=== PATIENT | male | born 1960 | race Caucasian/White ===

== ENCOUNTER 2017-06-12 20:54 | Inpatient (IN) | payer OTHER ==
[~2017-06-12] VITALS: Ht 177.8 cm; Wt 80.8 kg
[2017-06-12 21:12] VITALS: BP 103/69; PULSE 106; RESP 18; TEMP 98.4; O2SAT 99
[2017-06-13] VITALS (10 sets, daily range): BP systolic 98–134; BP diastolic 67–92; PULSE 78–125; RESP 14–20; TEMP 96.2–98.4; O2SAT 94–99
[2017-06-13] MEDS ORDERED: SODIUM CHLORIDE 0.9% FLUSH 10 ML FLUSH IVF PRN
[2017-06-13] MEDS ORDERED: SODIUM CHLORID 0.9% 500 ML INJ 500 ML IV ONE ×2 (00:15→04:30)
--- NOTE | 2017-06-13 00:30 | RADRPT ---
EXAM DATE/TIME: 06/13/2017 00:07 [facility] COMPARISON: CHEST SINGLE AP, June 09, 2017, 21:21. INDICATIONS : Palpitations. MEDICAL HISTORY : None. SURGICAL HISTORY : None. ENCOUNTER: Sequela ACUITY: 4 - 6 days PAIN SCORE: 2/10 LOCATION: Bilateral chest FINDINGS: A single view of the chest demonstrates the lungs to be symmetrically aerated without evidence of mas s, infiltrate or effusion. The heart size is mildly prominent with no perihilar edema. Atherosclerot ic changes are present in the aorta. Osseous structures are intact. CONCLUSION: Mild cardiomegaly with no evidence of pulmonary edema. Koffi Joy MD on June 13, 2017 at 0:27 Board Certified Radiologist. This report was verified electronically.
[2017-06-13 00:39] LABS: AUTOMATED NEUTROPHIL # 6.9 TH/MM3 (1.8-7.7); BASOPHIL # 0.4 TH/MM3 (0-0.2); BASOPHIL % 4.1 % (0.0-2.0); CHLORIDE 104 MEQ/L (98-107); EOSINOPHIL # 0.1 TH/MM3 (0-0.4); EOSINOPHIL % 0.9 % (0.0-4.0); HEMATOCRIT 43.5 % (39.0-51.0); HEMOGLOBIN 14.7 GM/DL (13.0-17.0); LYMPH % 20.6 % (9.0-44.0); LYMPHOCYTE # 2.1 TH/MM3 (1.0-4.8); MEAN CELL VOLUME 90.2 FL (80.0-100.0); MEAN CORPUSCULAR HEMOGLOBIN 30.4 PG (27.0-34.0); MEAN CORPUSCULAR HGB CONC 33.7 % (32.0-36.0); MEAN PLATELET VOLUME 8.1 FL (7.0-11.0); MONO % 7.3 % (0.0-8.0); MONOCYTE # 0.8 TH/MM3 (0-0.9); NEUT % 67.1 % (16.0-70.0); PLATELET COUNT 212 TH/MM3 (150-450); RED BLOOD COUNT 4.82 MIL/MM3 (4.50-5.90); RED CELL DISTRIBUTION WIDTH 14.4 % (11.6-17.2); SODIUM (NA) 137 MEQ/L (136-145); WHITE BLOOD COUNT 10.3 TH/MM3 (4.0-11.0)
[2017-06-13 00:44] LABS: BICARBONATE 27.1 MEQ/L (21.0-32.0); BLOOD UREA NITROGEN 11 MG/DL (7-18); CALCIUM 8.5 MG/DL (8.5-10.1); GLUCOSE,RANDOM 88 MG/DL (74-106); INTERNATIONAL NORMALIZED RATIO 1.1 RATIO; MAGNESIUM 2.3 MG/DL (1.5-2.5); PROTHROMBIN TIME - PATIENT 11.3 SEC (9.8-11.6)
[2017-06-13 00:48] LABS: GLOMERULAR FILTRATION RATE 69 ML/MIN (>89)
[2017-06-13 00:52] LABS: TROPONIN I LESS THAN 0.02 NG/ML (0.02-0.05)
--- NOTE | 2017-06-13 01:15 | RADRPT ---
EXAM DATE/TIME: 06/13/2017 01:02 [facility] COMPARISON: CT BRAIN W/O CONTRAST, June 09, 2017, 21:11. INDICATIONS : Dizziness. Followup known abnormal low attenuation area in the right middle cerebral artery distribut ion. RADIATION DOSE: 63.86 CTDIvol (mGy) MEDICAL HISTORY : None SURGICAL HISTORY : None. ENCOUNTER: Initial ACUITY: 3 days PAIN SCALE: 0/10 LOCATION: cranial TECHNIQUE: Multiple contiguous axial images were obtained of the head. Using automated exposure control and adj ustment of the mA and/or kV according to patient size, radiation dose was kept as low as reasonably a chievable to obtain optimal diagnostic quality images. DICOM format image data is available electro nically for review and comparison. FINDINGS: There has been no significant change in the area of decreased attenuation involving the right pa rietal and temporal lobes. There is no mass effect or midline shift. There is no acute hemorrhage. Th e ventricular system remains within normal limits. The posterior fossa and brainstem are unremarkable . The bone windows remain within normal limits. CONCLUSION: Stable appearance of the low attenuation region in the right middle cerebral artery distribution. Thi s remains most characteristic of an area of subacute infarction. Koffi Joy MD on June 13, 2017 at 1:11 Board Certified Radiologist. This report was verified electronically.
[2017-06-13] MEDS ORDERED: BISACODYL 10 MG SUPP RECTAL PRN (02:45)
[2017-06-13] MEDS ORDERED: ACETAMINOPHEN/HYDROcodone 325 MG/5 MG TAB PO PRN (02:45)
[2017-06-13] MEDS ORDERED: ACETAMINOPHEN 325 MG TAB PO PRN (02:45)
[2017-06-13] MEDS ORDERED: MAGNESIUM HYDROXIDE SUSP 30 ML CUP PO PRN (02:45)
[2017-06-13] MEDS ORDERED: LACTULOSE SYRUP 20 GM/30 ML CUP PO PRN (02:45)
[2017-06-13] MEDS ORDERED: ONDANSETRON HCL 4 MG/2 ML VIAL IVP PRN (02:45)
[2017-06-13] MEDS ORDERED: SENNOSIDES 8.6 MG TAB PO PRN (02:45)
[2017-06-13] MEDS ORDERED: SODIUM CHLORIDE 0.9% FLUSH 10 ML FLUSH IV FLUSH PRN (02:45)
[2017-06-13] MEDS: SODIUM CHLOR 0.9% 1000 ML INJ 1,000 ML IV SCH ×3 (03:03→21:12)
--- NOTE | 2017-06-13 06:18 | PD ---
HPI Chief Complaint: Dizziness Time Seen by Provider: 00:00 Travel History International Travel<30 days: No Contact w/Intl Traveler<30days: No Traveled to known affect area: No History of Present Illness HPI 56-year-old male presents to the emergency department complaint of dizziness and headache. Patient states he was seen on Thursday for dizziness and headache diagnosed with atrial fibrillation and abnormal CAT scan. Patient signed out AMA because of business reasons and returns now because of recurrence of his dizziness and headache. Patient denies visual disturbance altered mentation difficulty with speech or swallowing has had no chest pain palpitations shortness of breath sweats nausea vomiting upper or lower extremity numbness tingling or weakness or ataxia gait. Patient headache is not sudden onset not thunderclap and not worst ever. PFSH Past Medical History Narrative Medical Atrial fibrillation CVA tobacco use; nursing notes reviewed Tetanus Vaccination: > 5 Years Influenza Vaccination: Yes Past Surgical History Other Surgery: Yes (BASAL CELL CA REMOVED RIGHT UPPER BACK, RIGHT EAR) Social History Alcohol Use: No Tobacco Use: Yes (03/24 ppd) Substance Use: No Allergies-Medications (Allergen,Severity, Reaction): Coded Allergies: No Known Allergies (Unverified Allergy, Unknown, 06/13/17) Reported Meds & Prescriptions Reported Meds & Active Scripts Active Review of Systems Except as stated in HPI: all other systems reviewed are Neg General / Constitutional: No: Fever, Chills Eyes: No: Diploplia, Blurred Vision, Photophobia HENT: Positive: Headaches, Lightheadedness, No: Vertigo Cardiovascular: No: Chest Pain or Discomfort, Palpitations, Diaphoresis Respiratory: No: Shortness of Breath Gastrointestinal: No: Nausea, Vomiting Genitourinary: No: Frequency, Dysuria Musculoskeletal: No: Myalgias, Arthralgias Skin: No Rash Neurologic: Positive: Dizziness, Headache, No: Weakness, Syncope, Focal Abnormalities, Coordination Problem, Ataxia, Change in Mentation, Slurred Speech , Paresthesia, Incontinence, Seizures, Sensory Disturbance Psychiatric: No: Anxiety Hematologic/Lymphatic: No: Lymph Node Enlargement Physical Exam Narrative GENERAL: Well-developed well-nourished male in no acute distress no respiratory distress SKIN: Warm and dry. HEAD: Atraumatic. Normocephalic. EYES: Pupils equal and round. No scleral icterus. No injection or drainage. ENT: No nasal bleeding or discharge. Mucous membranes pink and moist. NECK: Trachea midline. No JVD. CARDIOVASCULAR: Regular rate and rhythm. RESPIRATORY: No accessory muscle use. Clear to auscultation. Breath sounds equal bilaterally. GASTROINTESTINAL: Abdomen soft, non-tender, nondistended. Hepatic and splenic margins not palpable. MUSCULOSKELETAL: Extremities without clubbing, cyanosis, or edema. No obvious deformities. NEUROLOGICAL: Awake and alert. No obvious cranial nerve deficits. GCS 15 motor grossly within normal limits. Five out of 5 muscle strength in the arms and legs. No limb ataxia. No pronator drift. DTRs 2+ and equal bilateral upper extremities and lower extremities. Sensory exam intact. Normal speech. PSYCHIATRIC: Appropriate mood and affect; insight and judgment normal. Data Data Last Documented VS Vital Signs Date Time Temp Pulse Resp B/P (MAP) Pulse Ox O2 Delivery O2 Flow Rate FiO2 06/13/17 02:45 84 16 98/75 (83) 98 Room Air 06/12/17 21:12 98.4 Orders Orders Electrocardiogram (06/13/17 00:00) Basic Metabolic Panel (Bmp) (06/13/17 00:00) Complete Blood Count With Diff (06/13/17 00:00) Magnesium (Mg) (06/13/17 00:00) Troponin I (06/13/17 00:00) Act Partial Throm Time (Ptt) (06/13/17 00:00) Prothrombin Time / Inr (Pt) (06/13/17 00:00) Chest, Single Ap (06/13/17 00:00) Ct Brain W/O Iv Contrast(Rout) (06/13/17 00:00) Ecg Monitoring (06/13/17 00:00) Iv Access Insert/Monitor (06/13/17 00:00) Oximetry (06/13/17 00:00) Sodium Chloride 0.9% Flush (Ns Flush) (06/13/17 00:00) Sodium Chlorid 0.9% 500 Ml Inj (Ns 500 M (06/13/17 00:15) Aspirin Ec (Ecotrin Ec) (06/13/17 09:00) Lipid Profile (06/13/17 06:00) Pravastatin (Pravachol) (06/13/17 09:00) Echo 2d Comp With Doppler (06/13/17 ) Consult Neurology (06/13/17 ) Admit To Inpatient (06/13/17 ) Vital Signs (Adult) Q4H (06/13/17 02:42) Activity Oob With Assistance (06/13/17 02:42) Security Associate / Telemetry .CONTINUOUS (06/13/17 02:42) Intake + Output RAVINDRA.QSHIFT (06/13/17 02:42) Diet Heart Healthy (06/13/17 Breakfast) Sodium Chlor 0.9% 1000 Ml Inj (Ns 1000 M (06/13/17 02:42) Sodium Chloride 0.9% Flush (Ns Flush) (06/13/17 02:45) Sodium Chloride 0.9% Flush (Ns Flush) (06/13/17 09:00) Ondansetron Inj (Zofran Inj) (06/13/17 02:45) Comprehensive Metabolic Panel (06/14/17 06:00) Complete Blood Count With Diff (06/14/17 06:00) Pt Request For Service (06/13/17 02:42) Case Management Consult (06/13/17 02:42) Scd Bilateral/Knee High RAVINDRA.BID (06/13/17 02:42) Gus Bilateral/Knee High RAVINDRA.QSHIFT (06/13/17 02:45) Acetaminophen (Tylenol) (06/13/17 02:45) Acetamin-Hydrocod 325-5 Mg ([place] 5-325 (06/13/17 02:45) Acetamin-Hydrocod 325-10 Mg ([place] 10-32 (06/13/17 02:45) Docusate Sodium-Senna (Kelli-Colace) (06/13/17 09:00) Magnesium Hydroxide Liq (Milk Of Magnesi (06/13/17 02:45) Sennosides (Senokot) (06/13/17 02:45) Bisacodyl Supp (Dulcolax Supp) (06/13/17 02:45) Lactulose Liq (Lactulose Liq) (06/13/17 02:45) Inpatient Certification (06/13/17 ) Admit Order (Ed Use Only) (06/13/17 ) Security Associate / Telemetry RAVINDRA.Q8H (06/13/17 02:57) Activity Bed Rest (06/13/17 02:57) Notify Dr: Other (06/13/17 02:57) Labs Laboratory Tests Test 06/13/17 00:21 White Blood Count 10.3 TH/MM3 Red Blood Count 4.82 MIL/MM3 Hemoglobin 14.7 GM/DL Hematocrit 43.5 % Mean Corpuscular Volume 90.2 FL Mean Corpuscular Hemoglobin 30.4 PG Mean Corpuscular Hemoglobin Concent 33.7 % Red Cell Distribution Width 14.4 % Platelet Count 212 TH/MM3 Mean Platelet Volume 8.1 FL Neutrophils (%) (Auto) 67.1 % Lymphocytes (%) (Auto) 20.6 % Monocytes (%) (Auto) 7.3 % Eosinophils (%) (Auto) 0.9 % Basophils (%) (Auto) 4.1 % Neutrophils # (Auto) 6.9 TH/MM3 Lymphocytes # (Auto) 2.1 TH/MM3 Monocytes # (Auto) 0.8 TH/MM3 Eosinophils # (Auto) 0.1 TH/MM3 Basophils # (Auto) 0.4 TH/MM3 CBC Comment DIFF FINAL Differential Comment Prothrombin Time 11.3 SEC Prothromb Time International Ratio 1.1 RATIO Activated Partial Thromboplast Time 28.2 SEC Blood Urea Nitrogen 11 MG/DL Creatinine 1.10 MG/DL Random Glucose 88 MG/DL Calcium Level 8.5 MG/DL Magnesium Level 2.3 MG/DL Sodium Level 137 MEQ/L Potassium Level 4.1 MEQ/L Chloride Level 104 MEQ/L Carbon Dioxide Level 27.1 MEQ/L Anion Gap 6 MEQ/L Estimat Glomerular Filtration Rate 69 ML/MIN Troponin I LESS THAN 0.02 NG/ML MDM Medical Decision Making Medical Screen Exam Complete: Yes Emergency Medical Condition: Yes Medical Record Reviewed: Yes Interpretation(s) EKG shows atrial fibrillation with RVR with rate of [address] elevation or injury pattern change noted Vital Signs Date Time Temp Pulse Resp B/P (MAP) Pulse Ox O2 Delivery O2 Flow Rate FiO2 06/13/17 02:45 84 16 98/75 (83) 98 Room Air 06/13/17 01:28 79 16 101/77 (85) 96 Room Air 06/13/17 00:23 101 18 134/92 (106) 99 Room Air 06/12/17 23:07 Room Air 06/12/17 21:12 98.4 106 18 103/69 (80) 99 CBC & BMP Diagram 3/24/18 00:21 Calcium Level 8.5, Magnesium Level 2.[address] 06/13/17 0000 Signed Impressions: Service Date/Time: Tuesday, June 13, 2017 01:02 - CONCLUSION: Stable appearance of the low attenuation region in the right middle cerebral artery distribution. This remains most characteristic of an area of subacute infarction. Koffi Joy MD Chest X-Ray 06/13/17 0000 Signed Impressions: Service Date/Time: Tuesday, June 13, 2017 00:07 - CONCLUSION: Mild cardiomegaly with no evidence of pulmonary edema. Koffi Joy MD Differential Diagnosis Atrial fibrillation, CVA, dizziness, arrhythmia, electrolyte disturbance, ACS, GA Narrative Course 56-year-old male returns to the emergency department for evaluation after initial evaluation on Thursday for dizziness identified to have new onset atrial fibrillation at that time with controlled ventricular rate here presents with rapid heart rate for suspicion of atrial fibrillation with RVR EKG ordered; patient complains of recurrent headache patient had abnormal CT 06/09/17 which showed subacute infarct in the middle cerebral artery distribution. Repeat CT brain noncontrast ordered Patient placed on monitor technician continuous pulse oximetry IV access obtained specimens collected and sent for resulting Repeat CT unchanged is evidence of subacute infarct right middle cerebral artery distribution Patient heart rate has returned to normal ventricular rate therefore deferred Cardizem infusion Patient administered aspirin 162 mg Patient given bolus of normal saline; HR 87 -110 primarily 92-88 no cardiazem administered IV Patient aware of lab results imaging results and plan for admission and is agreeable; call placed to [facility] Physician Communication Physician Communication discussed with Dr Breen Diagnosis Primary Impression: CVA (cerebral vascular accident) Qualified Codes: I63.9 - Cerebral infarction, unspecified Additional Impression: Atrial fibrillation Qualified Codes: I48.0 - Paroxysmal atrial fibrillation Admitting Information Admitting Physician Requests: Admit Indigo Angel MD Jun 13, 2017 06:18
[2017-06-13] MEDS: SODIUM CHLORIDE 0.9% FLUSH 10 ML FLUSH IV FLUSH SCH ×2 (09:00→21:00)
[2017-06-13] MEDS: DOCUSATE SODIUM 50 MG/SENNA 8.6 MG TAB PO SCH ×2 (09:00→21:11)
[2017-06-13] MEDS: ASPIRIN EC 81 MG TABEC PO SCH (09:05)
[2017-06-13] MEDS: PRAVASTATIN SOD 40 MG TAB PO SCH (09:06)
[2017-06-13] MEDS: ACETAMINOPHEN/HYDROcodone 325 MG/10 MG TAB PO PRN (09:09)
--- NOTE | 2017-06-13 10:23 | HHI.HP ---
[facility] Service [facility] Primary Care Physician No Primary Care Physician Admission Diagnosis cva; new onset afib Diagnoses: Chief Complaint: dizziness, headache Travel History International Travel<30 Days: No Contact w/Intl Traveler <30 Da: No Traveled to Known Affected Are: No History of Present Illness 56-year-old male with h/o Afib presents to the emergency department complaint of dizziness and headache. Patient states he was seen on Thursday for dizziness and headache diagnosed with atrial fibrillation and abnormal CAT scan. Patient signed out AMA because of business reasons and returns now because of recurrence of his dizziness and headache. Patient denies visual disturbance altered mentation difficulty with speech or swallowing has had no chest pain palpitations shortness of breath sweats nausea vomiting upper or lower extremity numbness tingling or weakness or ataxia gait. Patient headache is not sudden onset not thunderclap and not worst ever. Review of Systems Except as stated in HPI: all other systems reviewed are Neg Past Family Social History Past Medical History Afib Past Surgical History Removal of basal cell carcinoma right upper back and right ear Reported Medications Reported Meds & Active Scripts Active Allergies: Coded Allergies: No Known Allergies (Unverified Allergy, Unknown, 06/13/17) Family History No h/o stoke in his family Mother with DM, hypothyroidism, ovarian CA Father Bladder CA, Lip Ca, Spine CA Social History Tobacco use 1 1/2 ppd. No illicit drug use or EtOH use. Physical Exam Vital Signs Vital Signs Date Time Temp Pulse Resp B/P (MAP) Pulse Ox O2 Delivery O2 Flow Rate FiO2 06/13/17 08:00 96.2 92 16 127/67 (87) 97 06/13/17 08:00 96.2 92 16 127/67 (87) 97 06/13/17 07:35 06/13/17 05:41 78 16 100/70 (80) 97 Room Air 06/13/17 02:45 84 16 98/75 (83) 98 Room Air 06/13/17 01:28 79 16 101/77 (85) 96 Room Air 06/13/17 00:23 101 18 134/92 (106) 99 Room Air 06/12/17 23:07 Room Air 06/12/17 21:12 98.4 106 18 103/69 (80) 99 Physical Exam GENERAL: This is a well-nourished, well-developed patient, in no apparent distress. SKIN: No rashes, ecchymoses or lesions. Cool and dry. HEAD: Atraumatic. Normocephalic. No temporal or scalp tenderness. EYES: Pupils equal round and reactive. Extraocular motions intact. No scleral icterus. No injection or drainage. ENT: Nose without bleeding, purulent drainage or septal hematoma. Throat without erythema, tonsillar hypertrophy or exudate. Uvula midline. Airway patent. NECK: Trachea midline. No JVD or lymphadenopathy. Supple, nontender, no meningeal signs. CARDIOVASCULAR: Irregular rate and rhythm without murmurs, gallops, or rubs. RESPIRATORY: Clear to auscultation. Breath sounds equal bilaterally. No wheezes , rales, or rhonchi. GASTROINTESTINAL: Abdomen soft, non-tender, nondistended. No hepato-splenomegaly , or palpable masses. No guarding. MUSCULOSKELETAL: Extremities without clubbing, cyanosis, or edema. No joint tenderness, effusion, or edema noted. No calf tenderness. Negative Homans sign bilaterally. NEUROLOGICAL: Awake and alert. Cranial nerves II through XII intact. Motor and sensory grossly within normal limits. Five out of 5 muscle strength in all muscle groups. Normal speech. Laboratory Laboratory Tests Test 06/13/17 00:21 06/13/17 05:38 White Blood Count 10.3 Red Blood Count 4.82 Hemoglobin 14.7 Hematocrit 43.5 Mean Corpuscular Volume 90.2 Mean Corpuscular Hemoglobin 30.4 Mean Corpuscular Hemoglobin Concent 33.7 Red Cell Distribution Width 14.4 Platelet Count 212 Mean Platelet Volume 8.1 Neutrophils (%) (Auto) 67.1 Lymphocytes (%) (Auto) 20.6 Monocytes (%) (Auto) 7.3 Eosinophils (%) (Auto) 0.9 Basophils (%) (Auto) 4.1 Neutrophils # (Auto) 6.9 Lymphocytes # (Auto) 2.1 Monocytes # (Auto) 0.8 Eosinophils # (Auto) 0.1 Basophils # (Auto) 0.4 CBC Comment DIFF FINAL Differential Comment Prothrombin Time 11.3 Prothromb Time International Ratio 1.1 Activated Partial Thromboplast Time 28.2 Blood Urea Nitrogen 11 Creatinine 1.10 Random Glucose 88 Calcium Level 8.5 Magnesium Level 2.3 Sodium Level 137 Potassium Level 4.1 Chloride Level 104 Carbon Dioxide Level 27.1 Anion Gap 6 Estimat Glomerular Filtration Rate 69 Troponin I LESS THAN 0.02 Result Diagram: 06/13/17 0021 06/13/17 0021 Imaging Last Impressions Head CT 06/13/17 0000 Signed Impressions: Service Date/Time: Tuesday, June 13, 2017 01:02 - CONCLUSION: Stable appearance of the low attenuation region in the right middle cerebral artery distribution. This remains most characteristic of an area of subacute infarction. Koffi Joy MD Chest X-Ray 06/13/17 0000 Signed Impressions: Service Date/Time: Tuesday, June 13, 2017 00:07 - CONCLUSION: Mild cardiomegaly with no evidence of pulmonary edema. Koffi Joy MD [place] VTE Risk Assessment Caprini VTE Risk Assessment: Mod/High Risk (score >= 2) Caprini Risk Assessment Model Point Value = 1 Point Value = 2 Point Value = 3 Point Value = 5 Age 41-60 Minor surgery BMI > 25 kg/m2 Swollen legs Varicose veins or History of unexplained or recurrent spontaneous Oral contraceptives or hormone replacement Sepsis (< 1 month) Serious lung disease, including pneumonia (< 1 month) Abnormal pulmonary function Acute myocardial infarction Congestive heart failure (< 1 month) History of inflammatory bowel disease Medical patient at bed rest Age 61-74 Arthroscopic surgery Major open surgery (> 45 min) Laparoscopic surgery (> 45 min) Malignancy Confined to bed (> 72 hours) Immobilizing plaster cast Central venous access Age >= 75 History of VTE Family history of VTE Factor V Leiden Prothrombin [id number] Lupus anticoagulant Anticardiolipin antibodies Elevated serum homocysteine Heparin-induced thrombocytopenia Other congenital or acquired thrombophilia Stroke (< 1 month) Elective arthroplasty Hip, pelvis, or leg fracture Acute spinal cord injury (< 1 month) Prophylaxis Regimen Total Risk Factor Score Risk Level Prophylaxis Regimen 0-1 Low Early ambulation 2 Moderate Order ONE of the following: *Sequential Compression Device (SCD) *Heparin 5000 units SQ BID 3-4 Higher Order ONE of the following medications: *Heparin 5000 units SQ TID *Enoxaparin/Lovenox 40 mg SQ daily (WT < 150 kg, CrCl > 30 mL/min) *Enoxaparin/Lovenox 30 mg SQ daily (WT < 150 kg, CrCl > 10-29 mL/min) *Enoxaparin/Lovenox 30 mg SQ BID (WT < 150 kg, CrCl > 30 mL/min) AND/OR *Sequential Compression Device (SCD) 5 or more Highest Order ONE of the following medications: *Heparin 5000 units SQ TID (Preferred with Epidurals) *Enoxaparin/Lovenox 40 mg SQ daily (WT < 150 kg, CrCl > 30 mL/min) *Enoxaparin/Lovenox 30 mg SQ daily (WT < 150 kg, CrCl > 10-29 mL/min) *Enoxaparin/Lovenox 30 mg SQ BID (WT < 150 kg, CrCl > 30 mL/min) AND *Sequential Compression Device (SCD) Assessment and Plan Assessment and Plan 56-year-old male returns to the emergency department on 06/12 for evaluation after initial evaluation on Thursday for dizziness, identified to have new onset atrial fibrillation at that time with controlled ventricular rate. On arrival presents with rapid heart rate for suspicion of atrial fibrillation with RVR. EKG atrial fibrillation with RVR with rate of [address] elevation or injury pattern change. Patient complained of recurrent headache patient had abnormal CT 06/09/17 which showed subacute infarct in the middle cerebral artery distribution. Patient was recently evaluated and left AMA returned last night in the ED CVA (cerebral vascular accident) Paroxysmal atrial fibrillation with brief RVR on presentation Tobaccoism. Counselled extensively. CT head reviewed unchanged subacute infarct right middle cerebral artery distribution Received aspirin 162 mg in ER, also bolus of normal saline. Continue ASA81 mg po daily. Start metoprolol 12.5 mg po bid. EKG shows atrial fibrillation with RVR with rate of [address] elevation or injury pattern change noted HR was better controlled and no need of cardizem drip Will do 2D ECHO. Check lipid panel, A1c MRI/MRA Consult neuro ff Continue monitoring on telemetry DVT scd/teds/lovenox Discussed Condition With pt, nurse Physician Certification 2 Midnight Certification Type: Admission for Inpatient Services Order for Inpatient Services The services are ordered in accordance with Medicare regulations or non- Medicare payer requirements, as applicable. In the case of services not specified as inpatient-only, they are appropriately provided as inpatient services in accordance with the 2-midnight benchmark. Estimated LOS (days): 3 days is the estimated time the patient will need to remain in the hospital, assuming treatment plan goals are met and no additional complications. Post-Hospital Plan: Home Maddie Munoz MD Jun 13, 2017 10:23
[2017-06-13] MEDS ORDERED: PILL SPLITTER OTHER PRN (10:45)
[2017-06-13] MEDS: METOPROLOL TARTRATE 25 MG TAB PO SCH ×2 (11:10→21:12)
[2017-06-13] MEDS: ENOXAPARIN SODIUM 40 MG/0.4 ML SYRINGE SQ SCH (11:10)
--- NOTE | 2017-06-13 11:42 | MB ---
cc: Pallavi Saavedra MD DATE: 06/13/2017 HISTORY OF PRESENT ILLNESS: He is seen in neurological consultation. He is describing a bad headache Thursday and he apparently was in the hospital, went home and came back yesterday with some nausea, vomiting and a mild headache. The initial evaluation apparently included atrial fibrillation and the CT brain that showed some low attenuation in the right middle cerebral artery distribution suggesting a subacute infarct. Repeat CT today showed similar finding. MEDICATIONS: The patient does not take any medication except some occasional ibuprofen. PAST MEDICAL HISTORY: It appears he does not follow with any doctors. NEUROLOGICAL EXAMINATION: The neurological exam was quite benign. He is alert, pleasant, oriented. Normal mentation. The ocular movements and visual zavaleta are full. No facial weakness. The reflexes were 1-2+ and normal strength throughout. Plantar response were flexor. IMPRESSION: Apparent recent onset atrial fibrillation. Presumed right hemisphere subacute ischemic stroke. RECOMMENDATIONS: The patient was evaluated a few days ago and signed out AMA, now comes back for further evaluation. This will include echocardiogram, lipid panel and MRI brain along with MRA head and neck. Aspirin started. I will follow the neurological course. Thank you for asking us to assist in his care. MD BRIE Galeano/SB , 11:21 AM , 11:41 AM
[2017-06-13 11:58] LABS: CHOLESTEROL/ HDL RATIO 2.25 RATIO; HDL CHOLESTEROL 43.1 MG/DL (40.0-60.0)
--- NOTE | 2017-06-13 13:20 | ECHRPT ---
Indication: CVA/TIA CONCLUSIONS The left ventricular systolic function is htkrllhl-bk-nwctyds reduced with an estimated ejection fra ction in the range of 35-40%. Global hypokinesis. Normal left ventricular size. Mild concentric left ventricular hypertrophy. Mild thickening of the mitral valve leaflets. Rvyfa-yk-plip mitral valve regurgitation. Diffuse calcification of the aortic valve. mild to moderate aortic valve stenosis. Aortic valve mean gradient is 20.3 mmHg. Trace aortic valve regurgitation. There is trace tricuspid valve regurgitation. The estimated pulmonary arterial pressure is 23.2 mmHg. Trivial pulmonary valve regurgitation. BP: 100 / 70 HR: 80 Rhythm: Atrial fibrillation MEASUREMENTS (Male / Female) Normal Values Technical Quality:Fair 2D ECHO LV Diastolic Diameter PLAX 5.1 cm 4.2 - 5.9 / 3.9 - 5.3 cm LV Systolic Diameter PLAX 4.3 cm IVS Diastolic Thickness 1.3 cm 0.6 - 1.0 / 0.6 - 0.9 cm LVPW Diastolic Thickness 1.3 cm 0.6 - 1.0 / 0.6 - 0.9 cm LV Relative Wall Thickness 0.5 RV Internal Dim ED PLAX 3.2 cm LVOT Diameter 2.1 cm LA Systolic Diameter LX 3.8 cm 3.0 - 4.0 / 2.7 - 3.8 cm LV Ejection Fraction MOD 4C 40.7 % LV Cardiac Index MOD 4C 2103.4 cm/minm LV Ejection Fraction 4C AL 42.8 % LV Cardiac Index 4C AL 2239.1 cm/minm M-MODE Aortic Root Diameter MM 3.3 cm LA Systolic Diameter MM 3.5 cm LA Ao Ratio MM 1.1 AV Cusp Separation MM 1.0 cm DOPPLER AV Peak Velocity 300.5 cm/s AV Peak Gradient 36.1 mmHg AV Mean Gradient 20.3 mmHg AV Velocity Time Integral 66.7 cm LVOT Peak Velocity 70.7 cm/s LVOT Peak Gradient 2.0 mmHg LVOT Velocity Time Integral 13.4 cm LVOT Cardiac Index 2218.7 cm/minm AV Area Cont Eq vti 0.7 cm AV Area Cont Eq pk 0.8 cm MV Area PHT 4.8 cm LV E' Lateral Velocity 10.0 cm/s LV E' Septal Velocity 5.4 cm/s TR Peak Velocity 182.0 cm/s TR Peak Gradient 13.2 mmHg Right Atrial Pressure 10.0 mmHg Pulmonary Artery Systolic Pressu 23.2 mmHg Right Ventricular Systolic Press 23.2 mmHg PV Peak Velocity 74.7 cm/s PV Peak Gradient 2.2 mmHg FINDINGS LEFT VENTRICLE The left ventricular systolic function is yxzkvogk-qb-alopcxf reduced with an estimated ejection fra ction in the range of 35-40%. Normal left ventricular size. Mild concentric left ventricular hypertrophy. RIGHT VENTRICLE Normal right ventricular size and systolic function. LEFT ATRIUM The left atrial size is normal. RIGHT ATRIUM The right atrial size is normal. ATRIAL SEPTUM Normal atrial septal thickness without atrial level shunting by limited color doppler interrogation. AORTA The aortic root and proximal ascending aorta are normal in size on limited imaging. MITRAL VALVE Mild thickening of the mitral valve leaflets. Dhcxo-yc-kwuv mitral valve regurgitation. AORTIC VALVE Cannot rule out a bicuspid aortic valve or trileaflet valve with partially fused commissure. Diffuse calcification of the aortic valve. mild to moderate aortic valve stenosis. Aortic valve mean gradient is 20.3 mmHg. Trace aortic valve regurgitation. TRICUSPID VALVE Structurally normal tricuspid valve. There is trace tricuspid valve regurgitation. The estimated pulmonary arterial pressure is 23.2 mmHg. PULMONARY VALVE Trivial pulmonary valve regurgitation. VESSELS The inferior vena cava is normal in size. PERICARDIUM No pericardial effusion. Khanh Reveles MD (Electronically Signed) Final Date:13 June 2017 13:18
[2017-06-13] MEDS ORDERED: GADODIAMIDE PF 287 MG/ML 20 ML VIAL (for RAD MRI) IVCONTRAST ONE (14:00)
--- NOTE | 2017-06-13 15:24 | RADRPT ---
EXAM DATE/TIME: 06/13/2017 14:37 [facility] COMPARISON: MRI BRAIN W/O CONTRAST, June 13, 2017, 14:37. INDICATIONS : CVA. MEDICAL HISTORY : Hypertension. SURGICAL HISTORY : Skin CA removal ENCOUNTER: Initial ACUITY: 3 day PAIN SCORE: 4/10 LOCATION: cranial Please note a normal MRA of the brain does not entirely exclude the possibility of a small aneurysm, nor the possibility of distal intracranial vessel disease. TECHNIQUE: 3D time of flight MRA was performed. Source images, multiplanar STS MIP, and 3D volume MIP reconstru ctions were reviewed. FINDINGS: There is excellent visualization of the major intracranial arteries out to the second-order branch ve ssels. There is diminished flow in the more distal right middle cerebral artery territory compared t o the left side. The vessels are smaller on the right middle cerebral artery territory compared to th e left. The remaining vascular structures appear normal. The right posterior should be artery arises from the internal carotid artery which is a normal variant. There is no evidence for aneurysm and no evidence for vascular malformation. CONCLUSION: Diminished flow in the more distal right middle cerebral artery territory. Elliott Palacios MD on June 13, 2017 at 15:18 Board Certified Radiologist. This report was verified electronically.
--- NOTE | 2017-06-13 16:05 | RADRPT ---
EXAM DATE/TIME: 06/13/2017 14:37 [facility] COMPARISON: CT BRAIN W/O CONTRAST, June 13, 2017, 1:02. INDICATIONS : CVA. MEDICAL HISTORY : Hypertension. SURGICAL HISTORY : None. ENCOUNTER: Initial ACUITY: 1 day PAIN SCORE: 4/10 LOCATION: cranial TECHNIQUE: Multiplanar, multisequence MRI of the brain was performed without contrast. FINDINGS: CEREBRUM: There is an area of infarction involving the anterior medial right temporal lobe and in the more infe rior right parietal lobe. The ventricles are normal for age. No evidence of midline shift, mass lesi on, hemorrhage. No extraaxial fluid collections are seen. The pituitary gland and suprasellar ciste rn are normal in configuration. WHITE MATTER: No significant signal abnormalities are seen in the white matter. POSTERIOR FOSSA: The cerebellum and brainstem are intact. The 4th ventricle is midline. The cerebellopontine angle is unremarkable. The cerebellar tonsils are normal in position. DIFFUSION IMAGING: No focal areas of restricted diffusion are seen. No evidence of acute infarction. EXTRACRANIAL: The visualized portions of the orbits and paranasal sinuses are unremarkable. CONCLUSION: Area of infarction involving portions of the right temporal and parietal lobes. Elliott Palacios MD on June 13, 2017 at 16:00 Board Certified Radiologist. This report was verified electronically.
--- NOTE | 2017-06-13 16:07 | RADRPT ---
EXAM DATE/TIME: 06/13/2017 14:37 [facility] COMPARISON: No previous studies available for comparison. INDICATIONS : CVA. CONTRAST: 20 cc Omniscan (gadodiamide) IV MEDICAL HISTORY : Hypertension. SURGICAL HISTORY : None. ENCOUNTER: Initial ACUITY: 1 day PAIN SCORE: 0/10 LOCATION: neck Percent stenosis is calculated using the diameter of the stenotic region over the diameter of the nor mal distal internal carotid artery. TECHNIQUE: Bolus infused MRA of the extracranial circulation was performed using a neurovascular coil. Post pro cessing was performed including rotating subvolume maximum intensity projections of each carotid gabrielle ry, rotating full volume maximum intensity projections of both carotid arteries, sagittal and coronal sliding thin slab reformations of each carotid artery, and left oblique sliding thin slab reformatio n through the aortic arch to include the origin of the arch branch vessels. FINDINGS: AORTIC ARCH: The left common carotid artery arises from the base of the right brachiocephalic artery. This a clemencia l variant. No evidence of ostial narrowing. RIGHT CAROTID: The common carotid artery is intact. The carotid bulb has a normal configuration without ulceration or narrowing. The internal carotid artery lumen is smooth without stenosis. The external carotid ar rosana is intact. LEFT CAROTID: The common carotid artery is intact. The carotid bulb has a normal configuration without ulceration or narrowing. The internal carotid artery lumen is smooth without stenosis. The external carotid ar rosana is intact. VERTEBRALS: The vertebral arteries have a symmetric diameter. No stenotic lesions are seen. CONCLUSION: Normal examination. Elliott Palacios MD on June 13, 2017 at 16:03 Board Certified Radiologist. This report was verified electronically.
--- NOTE | 2017-06-13 19:29 | EKG ---
Date Performed: 06/13/2017 Time Performed: 00:07:39 PTAGE: 56 years EKG: ATRIAL FIBRILLATION WITH RAPID VENTRICULAR RESPONSE POSSIBLE RIGHT VENTRICULAR CONDUCTION D ELAY NONSPECIFIC T-WAVE ABNORMALITY ABNORMAL RHYTHM ECG Since the PREVIOUS TRACING , no significant change noted PREVIOUS TRACIN06/09/2017 21.03 DOCTOR: Sudarshan Nava Interpretating Date/Time 06/13/2017 19:28:26
[2017-06-14] VITALS (9 sets, daily range): BP systolic 97–127; BP diastolic 69–80; PULSE 73–113; RESP 18–20; TEMP 96.4–98; O2SAT 95–99
[2017-06-14] MEDS: SODIUM CHLORIDE 0.9% FLUSH 10 ML FLUSH IV FLUSH SCH ×2 (07:25→20:48)
[2017-06-14] MEDS: SODIUM CHLOR 0.9% 1000 ML INJ 1,000 ML IV SCH ×2 (07:25→16:55)
[2017-06-14] MEDS: DOCUSATE SODIUM 50 MG/SENNA 8.6 MG TAB PO SCH ×2 (07:46→20:48)
[2017-06-14] MEDS: METOPROLOL TARTRATE 25 MG TAB PO SCH ×2 (07:48→20:49)
[2017-06-14] MEDS: PRAVASTATIN SOD 40 MG TAB PO SCH (07:49)
[2017-06-14] MEDS: ASPIRIN EC 81 MG TABEC PO SCH (07:49)
[2017-06-14 08:45] LABS: AUTOMATED NEUTROPHIL # 5.1 TH/MM3 (1.8-7.7); BASOPHIL % 0.7 % (0.0-2.0); EOSINOPHIL # 0.1 TH/MM3 (0-0.4); EOSINOPHIL % 1.4 % (0.0-4.0); HEMATOCRIT 43.2 % (39.0-51.0); HEMOGLOBIN 13.8 GM/DL (13.0-17.0); LYMPH % 18.3 % (9.0-44.0); LYMPHOCYTE # 1.2 TH/MM3 (1.0-4.8); MEAN CELL VOLUME 92.2 FL (80.0-100.0); MEAN CORPUSCULAR HEMOGLOBIN 29.5 PG (27.0-34.0); MEAN CORPUSCULAR HGB CONC 31.9 % (32.0-36.0); MEAN PLATELET VOLUME 8.5 FL (7.0-11.0); MONO % 5.5 % (0.0-8.0); MONOCYTE # 0.4 TH/MM3 (0-0.9); NEUT % 74.1 % (16.0-70.0); PLATELET COUNT 184 TH/MM3 (150-450); RED BLOOD COUNT 4.68 MIL/MM3 (4.50-5.90); RED CELL DISTRIBUTION WIDTH 14.1 % (11.6-17.2); WHITE BLOOD COUNT 6.8 TH/MM3 (4.0-11.0)
--- NOTE | 2017-06-14 08:57 | HHI.PR ---
Subjective Remarks Patient in nad. Says no motor deficit. No n/v/d/c. Denies chest pain or sob. No fever or chills. Objective Vitals Vital Signs Date Time Temp Pulse Resp B/P (MAP) Pulse Ox O2 Delivery O2 Flow Rate FiO2 06/14/17 07:45 97.6 113 18 127/76 (93) 98 06/14/17 07:01 100 06/14/17 04:00 96.4 91 20 116/77 (90) 99 06/14/17 00:00 97.3 88 20 123/80 (94) 97 06/13/17 20:00 98.4 103 20 120/84 (96) 98 06/13/17 20:00 105 06/13/17 18:12 114 06/13/17 16:00 97.9 125 16 116/82 (93) 94 06/13/17 16:00 97.9 125 16 116/82 (93) 94 06/13/17 12:12 103 06/13/17 12:00 96.8 92 14 98/67 (77) 96 06/13/17 12:00 96.8 92 14 98/67 (77) 96 I/O 06/13/17 06/13/17 06/13/17 06/14/17 06/14/17 06/14/17 07:00 15:00 23:00 07:00 15:00 23:00 Intake Total 1000 ml 240 ml 60 ml Balance 1000 ml 240 ml 60 ml Intake Oral 240 ml 60 ml IV Total 1000 ml # Voids 4 2 # Bowel Movements 1 Result Diagram: 06/14/17 0807 06/13/17 0021 Imaging Last Impressions Head CT 06/13/17 0000 Signed Impressions: Service Date/Time: Tuesday, June 13, 2017 01:02 - CONCLUSION: Stable appearance of the low attenuation region in the right middle cerebral artery distribution. This remains most characteristic of an area of subacute infarction. Koffi Joy MD Chest X-Ray 06/13/17 0000 Signed Impressions: Service Date/Time: Tuesday, June 13, 2017 00:07 - CONCLUSION: Mild cardiomegaly with no evidence of pulmonary edema. Koffi Joy MD Objective Remarks GENERAL: This is a well-nourished, well-developed patient, in no apparent distress. CARDIOVASCULAR: Irregular rate and rhythm without murmurs, gallops, or rubs. RESPIRATORY: Clear to auscultation. Breath sounds equal bilaterally. No wheezes , rales, or rhonchi. GASTROINTESTINAL: Abdomen soft, non-tender, nondistended. No hepato-splenomegaly , or palpable masses. No guarding. MUSCULOSKELETAL: Extremities without clubbing, cyanosis, or edema. No joint tenderness, effusion, or edema noted. No calf tenderness. Negative Homans sign bilaterally. NEUROLOGICAL: Awake and alert. Cranial nerves II through XII intact. Motor and sensory grossly within normal limits. Five out of 5 muscle strength in all muscle groups. Normal speech. A/P Assessment and Plan 56-year-old male returns to the emergency department on 06/12 for evaluation after initial evaluation on Thursday for dizziness, identified to have new onset atrial fibrillation at that time with controlled ventricular rate. On arrival presents with rapid heart rate for suspicion of atrial fibrillation with RVR. EKG atrial fibrillation with RVR with rate of [address] elevation or injury pattern change. Patient complained of recurrent headache patient had abnormal CT 06/09/17 which showed subacute infarct in the middle cerebral artery distribution. Patient was recently evaluated and left AMA returned last night in the ED CVA (cerebral vascular accident) Paroxysmal atrial fibrillation with brief RVR on presentation Tobaccoism. Counselled extensively. CHF with reduced EF 35% CT head reviewed unchanged subacute infarct right middle cerebral artery distribution Received aspirin 162 mg in ER, also bolus of normal saline. Continue ASA81 mg po daily. Start metoprolol 12.5 mg po bid. EKG shows atrial fibrillation with RVR with rate of [address] elevation or injury pattern change noted HR was better controlled and no need of cardizem drip Will do 2D ECHO reviewed with low EF 35%. Consult cardiology Check lipid panel normal A1c pending MRI/MRA reviewed patient with diminished flow in the RCA, parietal and temporal stroke Consult neuro ff Continue monitoring on telemetry DVT scd/teds/lovenox Discussed Condition With pt, nurse Maddie Munoz MD Jun 14, 2017 08:57
[2017-06-14 08:59] LABS: CHLORIDE 107 MEQ/L (98-107); SODIUM (NA) 139 MEQ/L (136-145)
[2017-06-14 09:02] LABS: CALCIUM 8.7 MG/DL (8.5-10.1)
[2017-06-14 09:03] LABS: ALBUMIN 3.3 GM/DL (3.4-5.0); BICARBONATE 21.9 MEQ/L (21.0-32.0); BLOOD UREA NITROGEN 9 MG/DL (7-18); GLUCOSE,RANDOM 118 MG/DL (74-106)
[2017-06-14 09:06] LABS: ALT (GPT) 33 U/L (12-78); AST (GOT) 31 U/L (15-37); CREATININE 0.88 MG/DL (0.60-1.30); GLOMERULAR FILTRATION RATE 90 ML/MIN (>89)
[2017-06-14 09:08] LABS: TOTAL BILIRUBIN ADULT 1.2 MG/DL (0.2-1.0); TOTAL PROTEIN 6.9 GM/DL (6.4-8.2)
[2017-06-14 09:09] LABS: ALKALINE PHOSPHATASE 80 U/L (45-117)
[2017-06-14] MEDS: ENOXAPARIN SODIUM 40 MG/0.4 ML SYRINGE SQ SCH (11:39)
[2017-06-14 11:43] LABS: HEMOGLOBIN A1C 5.9 % (4.3-6.0)
[2017-06-14] MEDS: ACETAMINOPHEN/HYDROcodone 325 MG/10 MG TAB PO PRN (16:55)
--- NOTE | 2017-06-14 17:06 | MB ---
cc: Khanh Reveles MD DATE: 06/14/2017 REASON FOR CONSULTATION: New onset atrial fibrillation and CVA as well as cardiomyopathy. HISTORY OF PRESENT ILLNESS: The patient is a very pleasant 56-year-old gentleman who has no prior history per the patient, presented with a severe headache and was found to have a CVA. Additionally, he was found to have atrial fibrillation, which apparently is a new diagnosis for him. 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 He noted a little bit of shortness of breath yesterday evening in the hospital, but is currently asymptomatic except for a right temporal headache. He denies chest pain, lightheadedness or dizziness currently, but did have some lightheadedness with his initial presentation. PAST MEDICAL HISTORY: Tobacco abuse (counseled against). CURRENT MEDICATIONS: Lopressor 12.5 mg q. 12, Lovenox 40 mg subcutaneous q. 24, aspirin 81 mg daily, Pravachol 40 mg daily. ALLERGIES: NO KNOWN DRUG ALLERGIES. PHYSICAL EXAMINATION: VITAL SIGNS: Afebrile, pulse 85, respiratory rate 20, BP 97/71, sating 98% on room air. GENERAL: Pleasant, well-appearing gentleman in no distress. NECK: No JVD. LUNGS: Mildly decreased breath sounds in all zavaleta. CARDIOVASCULAR: Irregularly irregular rhythm with a regular rate. A I-II/ systolic murmur is appreciated at the right upper sternal border. ABDOMEN: Benign. EXTREMITIES: No edema. LABORATORY DATA: White count 6.8, hematocrit 43.2, platelets 184. Sodium 139, potassium 4.1, chloride 107, bicarbonate 21.9, BUN 9, creatinine 0.88, glucose 118. EKG shows atrial fibrillation at a rate of [address] changes. Echocardiogram shows an ejection fraction of 35% to 40%, LVH, mild to moderate aortic stenosis. MRI of the brain shows areas of infarction involving portions of the right temporal and parietal lobes. IMPRESSION: 1. New onset atrial fibrillation with cerebrovascular accident. The patient's headache is likely from his new CVA. He clearly will require anticoagulation and I will require neurology clearance before initiating warfarin. The patient's lack of insurance will make this somewhat challenging, so he will require community case manager assistance. 2. Cardiomyopathy. 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 He is already on a beta gigi, but holding off on an angiotensin-converting enzymes/angiotensin receptor gigi/Entresto due to his low blood pressures. At some point, one of these would need to be added. 3. Systolic congestive heart failure. The patient appears compensated from a CHF standpoint, and I would not diurese at this time. Further recommendations based on his clinical course. Again, I need clearance from neurology in order to initiate warfarin. Thank you again for the opportunity to participate in this patient's care. MD DORIAN East/JOSE ENRIQUE , 04:46 PM , 05:06 PM
--- NOTE | 2017-06-14 20:17 | RADRPT ---
EXAM DATE/TIME: 06/14/2017 20:03 [facility] COMPARISON: MRA BRAIN W/O CONTRAST, June 13, 2017, 14:37. CT BRAIN W/O CONTRAST, June 13, 2017, 1:02. INDICATIONS : Acute headache in are of infarct. RADIATION DOSE: 56.69 CTDIvol (mGy) MEDICAL HISTORY : Cerebrovascular disease. Cardiovascular disease SURGICAL HISTORY : None. ENCOUNTER: Subsequent ACUITY: 4 - 6 days PAIN SCALE: 8/10 LOCATION: temporal TECHNIQUE: Multiple contiguous axial images were obtained of the head. Using automated exposure control and adj ustment of the mA and/or kV according to patient size, radiation dose was kept as low as reasonably a chievable to obtain optimal diagnostic quality images. DICOM format image data is available electro nically for review and comparison. FINDINGS: CEREBRUM: Evolving infarct the right posterior sylvian region without hemorrhage. Left hemisphere is unremarka ble. Ventricle size is appropriate POSTERIOR FOSSA: The cerebellum and brainstem are intact. The 4th ventricle is midline. The cerebellopontine angle i s unremarkable. EXTRACRANIAL: The visualized portion of the orbits is intact. SKULL: The calvaria is intact. No evidence of skull fracture. CONCLUSION: Evolving infarct on the right without significant change. Cullen Acosta MD FACR on June 14, 2017 at 20:13 Board Certified Radiologist. This report was verified electronically.
[2017-06-15] VITALS: BP 123/74; PULSE 107; RESP 20; TEMP 97.3; O2SAT 97
[2017-06-15 04:00] VITALS: BP 103/76; PULSE 94; RESP 21; TEMP 96.7; O2SAT 96
[2017-06-15] MEDS: SODIUM CHLOR 0.9% 1000 ML INJ 1,000 ML IV SCH (06:10)
[2017-06-15] MEDS: DOCUSATE SODIUM 50 MG/SENNA 8.6 MG TAB PO SCH ×2 (07:56→21:26)
[2017-06-15] MEDS: ASPIRIN EC 81 MG TABEC PO SCH (07:56)
[2017-06-15] MEDS: METOPROLOL TARTRATE 25 MG TAB PO SCH ×2 (07:56→21:25)
[2017-06-15] MEDS: PRAVASTATIN SOD 40 MG TAB PO SCH (07:56)
[2017-06-15] MEDS: SODIUM CHLORIDE 0.9% FLUSH 10 ML FLUSH IV FLUSH SCH ×2 (07:56→21:27)
[2017-06-15 08:00] VITALS: BP 114/94; PULSE 84; TEMP 97.2; O2SAT 97
[2017-06-15] MEDS: ENOXAPARIN SODIUM 40 MG/0.4 ML SYRINGE SQ SCH (10:19)
--- NOTE | 2017-06-15 10:30 | PD.CARD.PN ---
Subjective Subjective Remarks Pt feels well, no headache, no complaints. Objective Medications Current Medications Medications (Trade) Dose Ordered Sig/Katie Route Start Time Stop Time Status Last Admin (Ecotrin Ec) 81 mg DAILY PO 06/13/17 09:00 06/15/17 07:56 (Pravachol) 40 mg DAILY PO 06/13/17 09:00 06/15/17 07:56 Sodium Chloride 1,000 ml @ 100 mls/hr Q10H IV 06/13/17 02:42 06/15/17 06:10 (NS Flush) 2 ml UNSCH PRN IV FLUSH 06/13/17 02:45 (NS Flush) 2 ml BID IV FLUSH 06/13/17 09:00 (Zofran Inj) 4 mg Q6H PRN IVP 06/13/17 02:45 (Tylenol) 650 mg Q6H PRN PO 06/13/17 02:45 (Anderson 5-325 Mg) 1 tab Q4H PRN PO 06/13/17 02:45 (Anderson 10-325 Mg) 1 tab Q4H PRN PO 06/13/17 02:45 06/14/17 16:55 (Kelli-Colace) 1 tab BID PO 06/13/17 09:00 06/15/17 07:56 (Milk Of Magnesia Liq) 30 ml Q12H PRN PO 06/13/17 02:45 (Senokot) 17.2 mg Q12H PRN PO 06/13/17 02:45 (Dulcolax Supp) 10 mg DAILY PRN RECTAL 06/13/17 02:45 (Lactulose Liq) 30 ml DAILY PRN PO 06/13/17 02:45 (Lopressor) 12.5 mg Q12HR PO 06/13/17 11:00 06/15/17 07:56 (Lovenox Inj) 40 mg Q24H SQ 06/13/17 11:00 06/15/17 10:19 (Pill Splitter) 1 ea UNSCH PRN OTHER 06/13/17 10:45 Vital Signs / I&O Vital Signs Date Time Temp Pulse Resp B/P (MAP) Pulse Ox O2 Delivery O2 Flow Rate FiO2 06/15/17 08:00 97.2 84 114/94 (101) 97 06/15/17 04:00 96.7 94 21 103/76 (85) 96 06/15/17 00:00 97.3 107 20 123/74 (90) 97 06/14/17 23:00 86 06/14/17 20:00 97.8 73 20 104/69 (81) 95 06/14/17 18:30 78 06/14/17 15:50 97.4 96 20 104/79 (87) 97 06/14/17 11:50 98.0 85 20 97/71 (80) I/O 06/14/17 06/14/17 06/14/17 06/15/17 06/15/17 06/15/17 07:00 15:00 23:00 07:00 15:00 23:00 Intake Total 60 ml 1000 ml 1901 ml Output Total 200 ml Balance 60 ml 1000 ml 1701 ml Intake Oral 60 ml 901 ml IV Total 1000 ml 1000 ml Output Urine Total 200 ml # Voids 2 2 # Bowel Movements 1 1 Physical Exam GENERAL: This is a well-nourished, well-developed patient, in no apparent distress. CARDIOVASCULAR: Regular rate and irregular rhythm without murmurs, gallops, or rubs. RESPIRATORY: Clear to auscultation. Breath sounds equal bilaterally. No wheezes , rales, or rhonchi. GASTROINTESTINAL: Abdomen soft, non-tender, nondistended. Normal, active bowel sounds MUSCULOSKELETAL: Extremities without clubbing, cyanosis, or edema. NEURO: Alert & Oriented x4 to person, place, time, situation. Moves all ext x4 Imaging Last Impressions Neck Magnetic Resonance Angiography 06/13/17 Signed Impressions: Service Date/Time: Tuesday, June 13, 2017 14:37 - CONCLUSION: Normal examination. Elliott Palacios MD Head Magnetic Resonance Angiography 06/13/17 0000 Signed Impressions: Service Date/Time: Tuesday, June 13, 2017 14:37 - CONCLUSION: Diminished flow in the more distal right middle cerebral artery territory. Elliott Palacios MD Brain MRI 06/13/17 0000 Signed Impressions: Service Date/Time: Tuesday, June 13, 2017 14:37 - CONCLUSION: Area of infarction involving portions of the right temporal and parietal lobes. Elliott Palacios MD Head CT 06/13/17 0000 Signed Impressions: Service Date/Time: Tuesday, June 13, 2017 01:02 - CONCLUSION: Stable appearance of the low attenuation region in the right middle cerebral artery distribution. This remains most characteristic of an area of subacute infarction. Koffi Joy MD Chest X-Ray 06/13/17 0000 Signed Impressions: Service Date/Time: Tuesday, June 13, 2017 00:07 - CONCLUSION: Mild cardiomegaly with no evidence of pulmonary edema. Koffi oJy MD Assessment and Plan Problem List: (1) Cardiomyopathy ICD Codes: I42.9 - Cardiomyopathy, unspecified Plan: LVEF 35-40; presumably non-ischemic/tachycardic; would plan for a nuclear stress tomorrow (if he is ready to be d/c'd otherwise this could be done outpt); holding off on matthias/arb/entresto due to low bp's and need for AV adam agents for his afib (2) Atrial fibrillation ICD Codes: I48.91 - Unspecified atrial fibrillation Status: Acute Plan: Generally controlled though I do see some mild RVR w/ movement, will increase metoprolol; recommend full anticoagulation as soon as OK w/ neurology (3) CVA (cerebral vascular accident) ICD Codes: I63.9 - Cerebral infarction, unspecified Status: Acute Plan: MGT per neuro; recommend full anticoagulation as soon as ok w/ Neuro Problem Qualifiers (1) Atrial fibrillation: Qualified Codes: I48.0 - Paroxysmal atrial fibrillation (2) CVA (cerebral vascular accident): Qualified Codes: I63.9 - Cerebral infarction, unspecified Khanh Reveles MD Jun 15, 2017 10:30
[2017-06-15] MEDS ORDERED: METOPROLOL TARTRATE 25 MG TAB PO ONE (11:00)
[2017-06-15 12:00] VITALS: BP 100/88; PULSE 70; RESP 16; TEMP 98; O2SAT 90
--- NOTE | 2017-06-15 12:34 | HHI.PR ---
Subjective Remarks Patient seen and examined today for follow-up on CVA, atrial fibrillation. Patient doing well. Denies any new complaints. Awaiting testing to be completed. Vital signs are stable. Patient remains afebrile Objective Vitals Vital Signs Date Time Temp Pulse Resp B/P (MAP) Pulse Ox O2 Delivery O2 Flow Rate FiO2 06/15/17 12:00 98.0 70 16 100/88 (92) 90 06/15/17 08:00 97.2 84 114/94 (101) 97 06/15/17 04:00 96.7 94 21 103/76 (85) 96 06/15/17 00:00 97.3 107 20 123/74 (90) 97 06/14/17 23:00 86 06/14/17 20:00 97.8 73 20 104/69 (81) 95 06/14/17 18:30 78 06/14/17 15:50 97.4 96 20 104/79 (87) 97 I/O 06/14/17 06/14/17 06/14/17 06/15/17 06/15/17 06/15/17 06:59 14:59 22:59 06:59 14:59 22:59 Intake Total 60 ml 1000 ml 1901 ml Output Total 200 ml Balance 60 ml 1000 ml 1701 ml Intake Oral 60 ml 901 ml IV Total 1000 ml 1000 ml Output Urine Total 200 ml # Voids 2 2 # Bowel Movements 1 1 Result Diagram: 06/14/17 0807 06/14/17 0807 Imaging Last Impressions Head CT 06/14/17 1901 Signed Impressions: Service Date/Time: Wednesday, June 14, 2017 20:03 - CONCLUSION: Evolving infarct on the right without significant change. Cullen Acosta MD FACR Neck Magnetic Resonance Angiography 06/13/17 0000 Signed Impressions: Service Date/Time: Tuesday, June 13, 2017 14:37 - CONCLUSION: Normal examination. Elliott Palacios MD Head Magnetic Resonance Angiography 06/13/17 0000 Signed Impressions: Service Date/Time: Tuesday, June 13, 2017 14:37 - CONCLUSION: Diminished flow in the more distal right middle cerebral artery territory. Elliott Palacios MD Brain MRI 06/13/17 0000 Signed Impressions: Service Date/Time: Tuesday, June 13, 2017 14:37 - CONCLUSION: Area of infarction involving portions of the right temporal and parietal lobes. Elliott Palacios MD Chest X-Ray 06/13/17 0000 Signed Impressions: Service Date/Time: Tuesday, June 13, 2017 00:07 - CONCLUSION: Mild cardiomegaly with no evidence of pulmonary edema. Koffi Joy MD Objective Remarks GENERAL: Well-developed, well-nourished, in no acute distress. alert and orientated HEENT: Head is normocephalic without any lesions or masses noted. Facial features are symmetric. Eyes: Extraocular muscles are intact. Conjunctivae were clear. NECK: Supple without any masses. Trachea midline no deviation. No JVD, CARDIAC: Regular rhythm, regular rate. S1/S2 are heard. No murmurs gallops or rubs. LUNGS: Clear to auscultation bilaterally. No wheeze, rhonchi or rales. No use of accessory muscles on inspiration or expiration. ABDOMEN: Soft, nontender. Nondistended. Bowel sounds heard in all 4 quadrants. No organomegaly or masses. Negative rebound, negative guarding EXTREMITIES: No edema, pulses are equal bilaterally. No cyanosis or clubbing NEUROLOGY: Mood and affect appear appropriate. Cranial nerves II through XII grossly intact. Moving all extremities, speech is clear Urinary Catheter: No Vascular Central Line Catheter: No A/P Assessment and Plan Subacute cerebrovascular accident CT head reviewed unchanged subacute infarct right middle cerebral artery distribution MRI/MRA reviewed patient with diminished flow in the RCA, parietal and temporal stroke Neck MRA was unremarkable Echocardiogram shows reduced systolic function with ejection fraction 35% Hemoglobin A1c 5.9 LDL 43 Physical therapy recommends no outpatient rehab needed. Awaiting OT/ST evaluation Discussed with neurologist who indicated patient can start full anticoagulation, recommending Eliquis. Discussed with case management, patient is self-pay, trying to evaluate appropriate medications for compliancy, Paroxysmal atrial fibrillation with RVR Cardiology following the patient Increased the [place] wall for improved rate control Recommending full anticoagulation when cleared by neurologist Cardiomyopathy with ejection fraction 35% Survey Engineer indicating not nonischemic, recommending nuclear stress test if can be performed inpatient or if patient is ready for discharge can be performed in the outpatient setting Chronic tobacco use Patient counseled on cessation DVT prevention Subcutaneous Lovenox Sequential compression devices Nasir Card Jun 15, 2017 12:34
[2017-06-15 16:00] VITALS: BP 102/70; PULSE 77; RESP 15; TEMP 98.2; O2SAT 98
[2017-06-15 20:00] VITALS: BP 105/84; PULSE 94; RESP 20; TEMP 98; O2SAT 99
[2017-06-16] VITALS: BP 93/69; PULSE 78; RESP 18; TEMP 97.9; O2SAT 96
[2017-06-16 07:51] LABS: BASOPHIL # 0.1 TH/MM3 (0-0.2); BASOPHIL % 0.6 % (0.0-2.0); EOSINOPHIL # 0.1 TH/MM3 (0-0.4); EOSINOPHIL % 1.1 % (0.0-4.0); HEMATOCRIT 40.5 % (39.0-51.0); HEMOGLOBIN 13.5 GM/DL (13.0-17.0); LYMPH % 12.2 % (9.0-44.0); LYMPHOCYTE # 1.1 TH/MM3 (1.0-4.8); MEAN CELL VOLUME 91.4 FL (80.0-100.0); MEAN CORPUSCULAR HEMOGLOBIN 30.5 PG (27.0-34.0); MEAN CORPUSCULAR HGB CONC 33.4 % (32.0-36.0); MEAN PLATELET VOLUME 8.3 FL (7.0-11.0); MONO % 6.4 % (0.0-8.0); MONOCYTE # 0.6 TH/MM3 (0-0.9); NEUT % 79.7 % (16.0-70.0); PLATELET COUNT 165 TH/MM3 (150-450); RED BLOOD COUNT 4.43 MIL/MM3 (4.50-5.90); RED CELL DISTRIBUTION WIDTH 14.2 % (11.6-17.2); WHITE BLOOD COUNT 8.9 TH/MM3 (4.0-11.0)
[2017-06-16 08:00] VITALS: BP 123/78; PULSE 76; RESP 16; TEMP 97.9; O2SAT 96
[2017-06-16 08:13] LABS: ALBUMIN 3.3 GM/DL (3.4-5.0); ALKALINE PHOSPHATASE 83 U/L (45-117); ALT (GPT) 34 U/L (12-78); AST (GOT) 23 U/L (15-37); BICARBONATE 29.5 MEQ/L (21.0-32.0); BLOOD UREA NITROGEN 10 MG/DL (7-18); CALCIUM 8.6 MG/DL (8.5-10.1); CHLORIDE 104 MEQ/L (98-107); GLOMERULAR FILTRATION RATE 77 ML/MIN (>89); GLUCOSE,RANDOM 94 MG/DL (74-106); SODIUM (NA) 137 MEQ/L (136-145); TOTAL BILIRUBIN ADULT 0.8 MG/DL (0.2-1.0); TOTAL PROTEIN 7.1 GM/DL (6.4-8.2)
[2017-06-16 08:26] LABS: TROPONIN I LESS THAN 0.02 NG/ML (0.02-0.05)
[2017-06-16] MEDS: DOCUSATE SODIUM 50 MG/SENNA 8.6 MG TAB PO SCH (08:51)
[2017-06-16] MEDS: METOPROLOL TARTRATE 25 MG TAB PO SCH (08:52)
[2017-06-16] MEDS: SODIUM CHLORIDE 0.9% FLUSH 10 ML FLUSH IV FLUSH SCH (08:52)
[2017-06-16] MEDS: ASPIRIN EC 81 MG TABEC PO SCH (08:52)
[2017-06-16] MEDS ORDERED: REGADENOSON INJ 0.4 MG/5 ML SYR IV ONE (09:37)
--- NOTE | 2017-06-16 10:42 | RADRPT ---
EXAM DATE/TIME: 06/16/2017 09:13 [facility] COMPARISON: No previous studies available for comparison. INDICATIONS : Cardiomegaly. Atrial fibrillation. Abnormal EKG. DOSE: 26.2 mCi Tc99m Myoview at stress. 8.1 mCi Tc99m Myoview at rest. 0.4 mg Lexiscan STRESS SYMPTOMS: Short of breath and chest pains. EJECTION FRACTION: 31% MEDICAL HISTORY : Hypertension. Carcinoma, basal cell. SURGICAL HISTORY : Skin cancer removed. ENCOUNTER: Initial ACUITY: 1 day PAIN SCALE: 4/10 LOCATION: Bilateral chest TECHNIQUE: The patient underwent pharmacologic stress with infusion of prescribed dose. Continuous ECG tracing was monitored during stress. Gated SPECT imaging was performed after stress and conventional SPECT i maging was performed at rest. The examination was performed on a SPECT/CT scanner, both attenuation and non-corrected datasets were reviewed. FINDINGS: DISTRIBUTION: The maximum perfused segment at stress is in the septal wall. PERFUSION STUDY: The pattern of perfusion at stress is within normal limits. GATED STUDY: There is global hypokinesia with reduced ejection fraction. No dyskinetic segments observed. CONCLUSION: No reversible defects observed to suggest acute ischemia. RISK CATEGORY: High Ty Hart Jr., MD on June 16, 2017 at 10:38 Board Certified Radiologist. This report was verified electronically.
[2017-06-16] MEDS ORDERED: RIVAROXABAN 20 MG TAB PO SCH (11:00)
[2017-06-16] MEDS ORDERED: XARE20TA PO (11:11)
[2017-06-16] MEDS ORDERED: METO25TA3 PO (11:11)
--- NOTE | 2017-06-16 11:11 | HHI.DCPOC ---
Discharge Care Plan Diagnosis: (1) Atrial fibrillation (2) CVA (cerebral vascular accident) (3) Cardiomyopathy Goals to Promote Your Health * To prevent worsening of your condition and complications * To maintain your health at the optimal level Directions to Meet Your Goals Take your medications as prescribed Follow your dietary instruction Follow activity as directed Keep your appointments as scheduled Take your immunizations and boosters as scheduled If your symptoms worsen call your PCP, if no PCP go to Urgent Care Center or Emergency Room Smoking is Dangerous to Your Health. Avoid second hand smoke Call the 24-hour hour crisis hotline for domestic abuse at Nasir Card Jun 16, 2017 11:11
[2017-06-16 12:00] VITALS: BP 93/70; PULSE 90; RESP 16; TEMP 98.7; O2SAT 98
--- NOTE | 2017-06-16 12:56 | HHI.DS ---
Discharge Summary Admission Date Jun 13, 2017 at 02:59 Discharge Date: Jun 16, 2017 Admitting Diagnosis cva; new onset afib (1) CVA (cerebral vascular accident) ICD Code: I63.9 - Cerebral infarction, unspecified Status: Acute (2) Cardiomyopathy ICD Code: I42.9 - Cardiomyopathy, unspecified (3) Atrial fibrillation ICD Code: I48.91 - Unspecified atrial fibrillation Status: Acute Procedures ECHO CONCLUSIONS The left ventricular systolic function is [id number] reduced with an estimated ejection fraction in the range of 35-40%. Global hypokinesis. Normal left ventricular size. Mild concentric left ventricular hypertrophy. Mild thickening of the mitral valve leaflets. [id number] mitral valve regurgitation. Diffuse calcification of the aortic valve. mild to moderate aortic valve stenosis. Aortic valve mean gradient is 20.3 mmHg. Trace aortic valve regurgitation. There is trace tricuspid valve regurgitation. The estimated pulmonary arterial pressure is 23.2 mmHg. Trivial pulmonary valve regurgitation. Brief History - From Admission 56-year-old male with h/o Afib presents to the emergency department complaint of dizziness and headache. Patient states he was seen on Thursday for dizziness and headache diagnosed with atrial fibrillation and abnormal CAT scan. Patient signed out AMA because of business reasons and returns now because of recurrence of his dizziness and headache. Patient denies visual disturbance altered mentation difficulty with speech or swallowing has had no chest pain palpitations shortness of breath sweats nausea vomiting upper or lower extremity numbness tingling or weakness or ataxia gait. Patient headache is not sudden onset not thunderclap and not worst ever. CBC/BMP: 06/16/17 0712 06/16/17 1201 Significant Findings Laboratory Tests Test 06/14/17 08:07 06/16/17 07:12 06/16/17 12:01 Mean Corpuscular Hemoglobin Concent 31.9 % (32.0-36.0) Neutrophils (%) (Auto) 74.1 % (16.0-70.0) 79.7 % (16.0-70.0) Random Glucose 118 MG/DL (74-106) Albumin 3.3 GM/DL (3.4-5.0) 3.3 GM/DL (3.4-5.0) Total Bilirubin 1.2 MG/DL (0.2-1.0) Red Blood Count 4.43 MIL/MM3 (4.50-5.90) Potassium Level 5.5 MEQ/L (3.5-5.1) Anion Gap 4 MEQ/L (5-15) Estimat Glomerular Filtration Rate 77 ML/MIN (>89) Troponin I LESS THAN 0.02 NG/ML Imaging Last Impressions Head CT 06/14/17 190 Signed Impressions: Service Date/Time: Wednesday, June 14, 2017 20:03 - CONCLUSION: Evolving infarct on the right without significant change. Cullen Acosta MD FACR Neck Magnetic Resonance Angiography 06/13/17 0000 Signed Impressions: Service Date/Time: Tuesday, June 13, 2017 14:37 - CONCLUSION: Normal examination. Elliott Palacios MD Head Magnetic Resonance Angiography 06/13/17 Signed Impressions: Service Date/Time: Tuesday, June 13, 2017 14:37 - CONCLUSION: Diminished flow in the more distal right middle cerebral artery territory. Elliott Palacios MD Brain MRI 06/13/17 0000 Signed Impressions: Service Date/Time: Tuesday, June 13, 2017 14:37 - CONCLUSION: Area of infarction involving portions of the right temporal and parietal lobes. Elliott Palacios MD Chest X-Ray 06/13/17 0000 Signed Impressions: Service Date/Time: Tuesday, June 13, 2017 00:07 - CONCLUSION: Mild cardiomegaly with no evidence of pulmonary edema. Koffi Joy MD PE at Discharge GENERAL: Well-developed, well-nourished, in no acute distress. alert and orientated HEENT: Head is normocephalic without any lesions or masses noted. Facial features are symmetric. Eyes: Extraocular muscles are intact. Conjunctivae were clear. NECK: Supple without any masses. Trachea midline no deviation. No JVD, CARDIAC: Regular rhythm, regular rate. S1/S2 are heard. No murmurs gallops or rubs. LUNGS: Clear to auscultation bilaterally. No wheeze, rhonchi or rales. No use of accessory muscles on inspiration or expiration. ABDOMEN: Soft, nontender. Nondistended. Bowel sounds heard in all 4 quadrants. No organomegaly or masses. Negative rebound, negative guarding EXTREMITIES: No edema, pulses are equal bilaterally. No cyanosis or clubbing NEUROLOGY: Mood and affect appear appropriate. Cranial nerves II through XII grossly intact. Moving all extremities, speech is clear Hospital Course 56 year-old male with known history of atrial fibrillation presented to hospital because of dizziness and headache. Patient originally came to emergency department 3 days prior and was diagnosed with a defibrillation and abnormal CAT scan showing acute CVA. Patient went home against medical vancomycin then he returned because of recurrence of the dizziness and headache. Patient had continue workup performed and found to have subacute CVA and was recommended admission for further evaluation management. GI consultation was requested. The patient did undergo full neurological workup with MRI studies which did indicate area of infarct patient involving portions the right temporal and parietal lobes. Neck MRA showed normal examination. Echocardiogram as above, PT/OT/ST evaluations were performed with no outpatient recommendations. Patient with new onset atrial fibrillation and cardiology evaluated the patient and due to the significant cardiomyopathy is recommended patient have a nuclear stress test performed. Patient did undergo nuclear stress test that did show high risk, however no signs of ischemia. Does have global hypokinesis. Cardiology recommended full anticoagulation. Due to patient's financial reasons, case management consulted to arrange outpatient anticoagulation. Patient was given 30 day trial of Xarelto. 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 Patient clinically stable this time. Will plan discharge home with appropriate outpatient follow-up. Pt Condition on Discharge: Stable Discharge Disposition: Discharge Home Discharge Time: > 30 minutes Discharge Instructions DIET: Follow Instructions for: Heart Healthy Diet Activities you can perform: Regular-No Restrictions Follow up Referrals: Cardiology - 2 Weeks with Kahnh Reveles MD Neurology - 2 Weeks with Pallavi Saavedra MD PCP Follow-up - 1 Week New Medications: Metoprolol Tartrate (Metoprolol Tartrate) 25 Mg Tab 25 MG PO Q12HR for Blood Pressure Management for 30 Days, TAB Rivaroxaban (Xarelto) 20 Mg Tab 20 MG PO DAILY for atrial fib, stroke prevention, #30 TAB Nasir Card Jun 16, 2017 12:56
== END 2017-06-16 15:40 | disposition home or self-care (01) | DRG 65 ==
LOC: PHED 20:54 → PHEDA 06-13 02:59 → MERGE 06-13 02:59 → PH3A 06-13 07:35
PROVIDERS: ADMIT Hospitalist; ATTEND Hospitalist
DX: I63.511 Cerebral infarction due to unspecified occlusion or stenosis of right middle cerebral artery (principal); I50.20 Unspecified systolic (congestive) heart failure; I42.9 Cardiomyopathy, unspecified; I48.0 Paroxysmal atrial fibrillation; Z85.828 Personal history of other malignant neoplasm of skin; F17.210 Nicotine dependence, cigarettes, uncomplicated
CPT/HCPCS: 70450; 70544; 70548; 70551; 71045; 78452; 80048; 80053; 80061; 82550; 83036; 83735; 84132; 84484; 85025; 85610; 85730; 93005; 93017; 93306; 96360; A9502; A9579; J1650; J2785; J7030; J7040